=== PATIENT | male | born 1960 | race Two or more races ===

== ENCOUNTER 2018-10-28 17:34 | Emergency (ER) | payer SELFPAY ==
[~2018-10-28] VITALS: Ht 180.3 cm; Wt 80.0 kg
[2018-10-28] MEDS ORDERED: SODIUM CHLORIDE 0.9% 1,000 ML IV ONE (17:39)
[2018-10-28] MEDS ORDERED: LORAZEPAM 2MG/ML CPJ IV ONE (17:45)
[2018-10-28 17:56] LABS: BASOPHILS % 0.7 % (0.0-2.0); EOSINOPHILS % 5.3 % (0.0-5.0); HEMATOCRIT. 50.3 % (42.0-52.0); LYMPHOCYTES % 22.1 % (20.0-50.0); MEAN CORPUSCULAR HEMOGLOBIN 30.2 pg (28.0-32.0); MEAN CORPUSCULAR VOLUME 89.3 fL (80.0-94.0); MEAN PLATELET VOLUME 6.9 fl (7.4-10.4); MONOCYTES % 7.8 % (2.0-8.0); NEUTROPHILS % 64.1 % (40.0-76.0); PLATELET 196 x1000/uL (130-400); RED BLOOD CELL COUNT 5.64 mill/uL (4.7-6.1); RED CELL DISTRIBUTION WIDTH 15.4 % (11.6-14.6)
[2018-10-28 18:03] LABS: CHLORIDE 106 mEq/L (98-107)
[2018-10-28 18:04] LABS: PARTIAL THROMBOPLASTIN TIME 36.4 sec (23.4-31.0)
[2018-10-28 18:07] LABS: ETHANOL BLOOD < 10 mg/dL
[2018-10-28 18:17] LABS: *AMPHETAMINES SCREEN URINE NEGATIVE (NEGATIVE); *BARBITURATES SCREEN URINE NEGATIVE (NEGATIVE); *BENZODIAZEPINES SCREEN URINE NEGATIVE (NEGATIVE); *COCAINE SCREEN URINE NEGATIVE (NEGATIVE)
[2018-10-28 18:18] LABS: CANNABINOID URINE SCREEN NEGATIVE (NEGATIVE); METHADONE URINE SCREEN NEGATIVE (NEGATIVE); OPIATES URINE SCREEN NEGATIVE (NEGATIVE); PHENCYCLIDINE URINE SCREEN NEGATIVE (NEGATIVE)
[2018-10-28 21:39] VITALS: BP 118/85
== END 2018-10-28 21:42 | disposition home or self-care (01) ==
LOC: ER 17:34
DX: R20.2 Paresthesia of skin (principal); G93.40 Encephalopathy, unspecified; F41.9 Anxiety disorder, unspecified; R53.1 Weakness
CPT/HCPCS: 36415; 70450; 71045; 80053; 80305; 80320; 82962; 83880; 84443; 84484; 85025; 85610; 85730; 93005; 96374; 99284; J2060; J7030; G0480